=== PATIENT | female | born 1960 | race Caucasian/White ===

== ENCOUNTER 2020-12-04 07:32 | Day surgery (SDC) | payer OTHER ==
[~2020-12-04] VITALS: Ht 165.1 cm; Wt 59.0 kg
[2020-12-04] MEDS ORDERED: SIMETHICONE 40 MG/0.6 ML ML ONE (08:56)
[2020-12-04] MEDS ORDERED: fentaNYL CITRATE/PF 100 MCG/2 ML AMP ONE ×2 (08:56→09:17)
[2020-12-04] MEDS ORDERED: MIDAZOLAM HCL 5 MG/5 ML VIAL ONE ×2 (08:57→09:17)
[2020-12-04] MEDS ORDERED: DIPHENHYDRAMINE INJ 50 MG/ML VIAL ONE (09:16)
[2020-12-04 17:56] VITALS: BP_SYST 128
== END 2020-12-04 11:30 | disposition home or self-care (01) ==
LOC: SDS 07:32 → SMU 07:34 → SDS 11:30
PROVIDERS: ATTEND Internal Medicine
DX: R19.4 Change in bowel habit (principal); K57.30 Diverticulosis of large intestine without perforation or abscess without bleeding; K64.8 Other hemorrhoids; Z85.850 Personal history of malignant neoplasm of thyroid; Z79.899 Other long term (current) drug therapy; Z20.822 Contact with and (suspected) exposure to COVID-19
CPT/HCPCS: 45380; 88305; 99152; 99153; G0378; J1200; J2250; J3010; U0003